=== PATIENT | female | born 2000 | race Hispanic/Latino ===

== ENCOUNTER 2024-01-23 23:18 | Emergency (ER) | payer SELFPAY ==
[~2024-01-23] VITALS: Ht 157.5 cm; Wt 57.6 kg
[2024-01-23] MEDS ORDERED: CEFTRIAXONE 500MG VIAL IM STA (23:38)
[2024-01-23] MEDS: CEFTRIAXONE 500MG VIAL IM SCH (23:52)
[2024-01-24] MEDS ORDERED: cefTRIAXone 1G VIAL IM ONE
[2024-01-24 00:39] LABS: APPEARANCE,URINE CLEAR (CLEAR); BILIRUBIN,URINE NEGATIVE (NEGATIVE); COLOR,URINE LIGHT-YELLOW (YELLOW); GLUCOSE, URINE (UA) NEGATIVE (NEGATIVE); KETONES,URINE NEGATIVE (NEGATIVE); LEUKOCYTE ESTERASE ,URINE 250 Leu/uL (NEGATIVE); NITRATE,URINE NEGATIVE (NEGATIVE); PROTEIN,URINE 20 mg/dL (NEGATIVE); UROBILINOGEN,URINE 0.2 mg/dL (0.2-1.0)
[2024-01-24 00:43] LABS: ADD UA MICROSCOPIC YES
[2024-01-24 00:48] LABS: BACTERIA,URINE MOD /HPF (None Seen); MUCUS,URINE RARE LPF (None Seen); SQUAMOUS EPITHELIAL CELL,UR FEW /HPF (0-2)
[2024-01-24] MEDS ORDERED: DOXY100T2 PO (00:49)
[2024-01-24] MEDS ORDERED: CEPH500B PO (00:52)
[2024-01-24 01:01] VITALS: BP 118/65; PULSE 92; RESP 18; TEMP 98.6; O2SAT 100
== END 2024-01-24 01:02 | disposition home or self-care (01) ==
LOC: EDH 23:18
DX: N94.10 Unspecified dyspareunia (principal); N39.0 Urinary tract infection, site not specified; Z20.2 Contact with and (suspected) exposure to infections with a predominantly sexual mode of transmission; Z98.890 Other specified postprocedural states
CPT/HCPCS: 99283; 87086; 87491; 87591; 81001; 81025; 96372; J0696

== ENCOUNTER 2024-01-31 03:30 | Emergency (ER) | payer SELFPAY ==
[~2024-01-31] VITALS: Ht 157.5 cm; Wt 57.6 kg
[~2024-01-31 03:30] MED LIST: CEPH500B PO; DOXY100T2 PO
[2024-01-31 03:32] VITALS: TEMP 97.8
[2024-01-31 04:31] LABS: APPEARANCE,URINE CLEAR (CLEAR); BILIRUBIN,URINE NEGATIVE (NEGATIVE); COLOR,URINE LIGHT-YELLOW (YELLOW); GLUCOSE, URINE (UA) NEGATIVE (NEGATIVE); KETONES,URINE NEGATIVE (NEGATIVE); LEUKOCYTE ESTERASE ,URINE NEGATIVE Leu/uL (NEGATIVE); NITRATE,URINE NEGATIVE (NEGATIVE); OCCULT BLOOD,URINE NEGATIVE (NEGATIVE); PH,URINE 6.5 (5.0-8.0); PROTEIN,URINE NEGATIVE (NEGATIVE); UROBILINOGEN,URINE 0.2 mg/dL (0.2-1.0)
[2024-01-31 04:35] LABS: ADD UA MICROSCOPIC NO
[2024-01-31 04:41] LABS: HCG,QUALITATIVE URINE NEGATIVE (NEGATIVE)
[2024-01-31] MEDS: AZITHROMYCIN 250 MG TABLET PO ONE (06:36)
[2024-01-31 06:49] VITALS: BP 105/60; PULSE 64; RESP 18; O2SAT 99
[2024-01-31] MEDS ORDERED: AZIT250T9 PO (07:02)
[2024-01-31] MEDS: cefTRIAXone 1G VIAL IM ONE (07:12)
== END 2024-01-31 07:29 | disposition home or self-care (01) ==
LOC: EDH 03:30
DX: Z20.2 Contact with and (suspected) exposure to infections with a predominantly sexual mode of transmission (principal)
CPT/HCPCS: 99283; 87210; 87491 ×2; 87591 ×2; 81003; 81025; 96372; J0696